=== PATIENT | male | born 1995 ===

== ENCOUNTER 2019-06-02 21:39 | Emergency (ER) | payer MEDICAID ==
[~2019-06-02] VITALS: Ht 172.7 cm; Wt 63.5 kg
[2019-06-02 22:00] VITALS: BP 126/60
[2019-06-03 00:03] LABS: APPEARANCE,URINE CLEAR; BILIRUBIN, URINE NEGATIVE (NEGATIVE); COLOR,URINE PALE YELLOW; GLUCOSE, URINE (UA) NEGATIVE (NEGATIVE); KETONES,URINE NEGATIVE (NEGATIVE); NITRITE,URINE NEGATIVE (NEGATIVE); PH,URINE 6 (4.5-8.0); PROTEIN,URINE NEGATIVE (NEGATIVE); UROBILINOGEN,URINE NORMAL MG/DL (0.0-1.0)
[2019-06-03 00:05] LABS: LEUKOCYTE ESTERASE ,URINE NEGATIVE (NEGATIVE)
--- NOTE | 2019-06-03 00:41 | Emergency Room Report ---
History of Present Illness General Chief Complaint: General Complaint Source: Patient Present Illness HPI The patient presents requesting forms to be filled out specifying that he has a shy bladder. 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 Apparently a week ago he was sent to get a drug screen. He urinated before and during that time. Was unable to produce 45 mils of urine. He presents asked presents asking that we fill out his paperwork. The patient denies drug use or psychiatric problems. He denies dysuria or difficulty urinating. 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 Nursing Documentation: PMH: Agreed; PSxH: Agreed Nursing Documentation-PMH Past Medical History: No Stated History Review of Systems Constitutional: Denies: fever Respiratory: Denies: shortness of breath Cardiovascular: Denies: chest pain Gastrointestinal: Denies: abdominal pain, diarrhea, nausea, vomiting Genitourinary: Reports: see HPI Musculoskeletal: Denies: back pain Skin: Denies: rash Psychiatric: Reports: see HPI Neurological: Denies: seizure Endocrine: Denies: increased thirst, increased urine Physical Exam Vital Signs Date Time Temp Pulse Resp B/P (MAP) Pulse Ox O2 Delivery O2 Flow Rate FiO2 06/02/19 21:44 97.7 77 17 126/60 (82) 98 06/02/19 22:00 Room Air Sp02 EP Interpretation: reviewed, normal General Appearance: well appearing, no apparent distress, GCS 15 Head: normocephalic, atraumatic Eyes: bilateral eye normal inspection, bilateral eye PERRL, bilateral eye EOMI ENT: moist mucus membranes Respiratory: chest non-tender, lungs clear, normal breath sounds Cardiovascular #1: regular rate, rhythm Cardiovascular #2: 2+ radial (R) Gastrointestinal: normal inspection, scaphoid Genitourinary: no CVA tenderness Musculoskeletal: gait/station normal Neurologic: alert, grossly normal Psychiatric: mood/affect normal - Lacks understanding of the problem Skin: no rash Medical Decision Making Diagnostic Impression: Primary Impression: Evaluation for shy bladder Additional Impression: Medical screening exam ER Course Patient presents for evaluation for shy bladder. By his history this does not seem to be present. Urinalysis will be obtained. Patient needed to be reminded several times while he was waiting and that he needs to give a urine sample. Urinalysis clear with adequate volume. Paperwork filled out stating that the patient does not have a shy bladder. Patient stable for outpatient observation and treatment. Laboratory Tests Test 06/02/19 23:51 Urine Color Pale yellow Urine Appearance Clear Urine pH 6 (4.5-8.0) Urine Specific [place] 1.010 (1.005-1.035) Urine Protein Negative (NEGATIVE) Urine Glucose (UA) Negative (NEGATIVE) Urine Ketones Negative (NEGATIVE) Urine Blood Negative (NEGATIVE) Urine Nitrite Negative (NEGATIVE) Urine Bilirubin Negative (NEGATIVE) Urine Urobilinogen Normal MG/DL (0.0-1.0) Urine Leukocyte Esterase Negative (NEGATIVE) Last Vital Signs Date Time Temp Pulse Resp B/P (MAP) Pulse Ox O2 Delivery O2 Flow Rate FiO2 06/03/19 00:45 97.7 70 18 122/63 98 Room Air Status: unchanged Disposition: HOME, SELF-CARE Condition: Stable Giovanny Sanderson MD Jun 03, 2019 00:41
[2019-06-03 00:45] VITALS: BP 122/63
== END 2019-06-03 00:48 | disposition home or self-care (01) ==
LOC: EMR 22:05
DX: Z13.89 Encounter for screening for other disorder (principal)
CPT/HCPCS: 81003; Z7502; 99281